=== PATIENT | male | born 1985 | race Caucasian/White ===

== ENCOUNTER 2023-12-05 18:21 | Emergency (ER) | payer MEDICAID ==
[~2023-12-05] VITALS: Ht 167.6 cm; Wt 77.1 kg
[2023-12-05 18:31] VITALS: BP_SYST 160; PULSE 106; RESP 18; TEMP 96.5; O2SAT 99
== END 2023-12-05 18:56 | disposition left against medical advice (07) ==
LOC: SED 18:21
DX: R07.81 Pleurodynia (principal); Z53.21 Procedure and treatment not carried out due to patient leaving prior to being seen by health care provider